=== PATIENT | female | born 1970 | race Caucasian/White ===

== ENCOUNTER 2022-03-24 09:05 | Outpatient (CLI) | payer OTHER, SELFPAY ==
--- NOTE | 2022-03-24 09:15 | CRLHL7_ITS ---
For Patients: As a result of the Century Cures Act, medical imaging exams and procedure reports are released immediately into your electronic medical record. You may view this report before your referring provider. If you have questions, please contact your health care provider. BILATERAL SCREENING MAMMOGRAM WITH COMPUTER-AIDED DETECTION AND TOMOSYNTHESIS TECHNIQUE: CC and MLO views were obtained. These mammographic images have been obtained using full-field digital technique. These mammographic images were interpreted with the benefit of computer-aided detection. Breast Tomosynthesis was used in this interpretation. COMPARISON FILM: 03/26/21, 03/08/20. FINDINGS: There are scattered areas of fibroglandular density IMPRESSION: There is no radiographic evidence for malignancy. ASSESSMENT: BI-RADS Category 1: Negative RECOMMENDATION: Routine screening mammogram in 1 year. A lay language report of this examination will be provided to the patient. Angelo Crisostomo M.D. Diagnostic Radiologist [email or web address] ADRIEL/Dictated by: Angelo Crisostomo MD @ 03/24/2022 10:07:00 AM (Electronically Signed)
== END 2022-03-24 09:06 | disposition home or self-care (01) ==
LOC: MAMMO 09:06
PROVIDERS: Visit Provider Physician Assistant Medical
DX: Z12.31 Encounter for screening mammogram for malignant neoplasm of breast (principal)
CPT/HCPCS: 77063; 77067

== ENCOUNTER 2022-07-22 10:59 | Outpatient (CLI) | payer OTHER, SELFPAY ==
[2022-07-22 21:32] LABS: Albumin* 4.5 g/dL (3.3-5.0)
[2022-07-22 21:33] LABS: Chloride* 105 mmol/L (96-114); Potassium* 4.8 mmol/L (3.6-5.1); Sodium* 138 mmol/L (135-149)
[2022-07-22 21:35] LABS: Bilirubin Total* 0.5 mg/dL (0.1-1.5); Carbon Dioxide* 27 mmol/L (20-32); Cholesterol* 222 mg/dL (90-199); Creatinine* 0.7 mg/dL (0.5-1.5); Estimated Glomerular Filt Rate 106 ml/min; Total Protein* 7.4 g/dL (6.0-8.3)
[2022-07-22 21:36] LABS: Alanine Aminotransferase* 35 U/L (4-35); Alkaline Phosphatase* 82 U/L (40-150); Aspartate Amino Transferase* 31 U/L (12-35); Blood Urea Nitrogen* 16 mg/dL (5-24); Calcium* 9.4 mg/dL (8.4-10.6); Glucose* 100 mg/dL (60-115); HDL Cholesterol* 55 mg/dL (>=50); LDL Cholesterol Calculated 131 mg/dL (<100); Triglycerides* 180 mg/dL (40-149)
== END 2022-07-22 11:00 | disposition home or self-care (01) ==
PROVIDERS: Visit Provider Physician Assistant Medical
DX: Z00.00 Encounter for general adult medical examination without abnormal findings (principal); R03.0 Elevated blood-pressure reading, without diagnosis of hypertension; E66.01 Morbid (severe) obesity due to excess calories; Z13.6 Encounter for screening for cardiovascular disorders; Z13.29 Encounter for screening for other suspected endocrine disorder
CPT/HCPCS: 80053; 80061; 84443

== ENCOUNTER 2022-07-23 07:10 | Outpatient (CLI) | payer OTHER, SELFPAY ==
--- NOTE | 2022-07-23 07:15 | CRLHL7_ITS ---
For Patients: As a result of the Century Cures Act, medical imaging exams and procedure reports are released immediately into your electronic medical record. You may view this report before your referring provider. If you have questions, please contact your health care provider. Examination: US abdominal aorta Indication: strong family hx AAA, dissection. Technique: Mayorga scale and color Doppler images of the aorta and common iliac arteries are obtained. 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 Dictated by Angelo Crisostomo MD @ 07/23/2022 9:44:35 AM (Electronically Signed)
== END 2022-07-23 07:11 | disposition home or self-care (01) ==
PROVIDERS: PCP Physician Assistant Medical; Visit Provider Physician Assistant Medical
DX: Z13.6 Encounter for screening for cardiovascular disorders (principal); I72.2 Aneurysm of renal artery; Z82.49 Family history of ischemic heart disease and other diseases of the circulatory system
CPT/HCPCS: 76706

== ENCOUNTER 2022-09-28 11:19 | Outpatient (CLI) | payer OTHER, SELFPAY ==
--- NOTE | 2022-09-28 11:56 | W.ANESCHARGE ---
Anesthesia Charges Start Date/Time Anesthesia Start Date: 09/28/22 Anesthesia Start Time: 11:50 Stop Date/Time Anesthesia Stop Date: 09/28/22 Anesthesia Stop Time: 12:46
--- NOTE | 2022-09-28 12:51 | W.ANESCHARGE ---
Anesthesia Charges Start Date/Time Anesthesia Start Date: 09/28/22 Anesthesia Start Time: 11:50 Stop Date/Time Anesthesia Stop Date: 09/28/22 Anesthesia Stop Time: 12:46
== END 2022-09-28 11:20 | disposition home or self-care (01) ==
LOC: OP CLINIC 11:20
PROVIDERS: PCP Physician Assistant Medical; Visit Provider Surgery
DX: Z12.11 Encounter for screening for malignant neoplasm of colon (principal); K63.5 Polyp of colon; K62.1 Rectal polyp; K63.89 Other specified diseases of intestine; K57.30 Diverticulosis of large intestine without perforation or abscess without bleeding; Z83.71 Family history of colonic polyps
CPT/HCPCS: 00811; 45380; 45385; 88305; J2704

== ENCOUNTER 2022-11-23 21:58 | Emergency (ER) | payer OTHER, SELFPAY ==
[2022-11-23 22:10] VITALS: BP 156/110; PULSE 97; RESP 20; TEMP 36.2; O2SAT 99; BMI 42.8
--- NOTE | 2022-11-23 23:27 | ED_ITS ---
HPI - General Adult General Chief complaint: Nausea/Vomiting Stated complaint: Wegovy medication reaction, vomiting Time Seen by Provider: 11/23/22 23:22 History of Present Illness HPI narrative: pt aox4, ABCs intact. Patient arrives stating that she has been unable to stop vomiting since 1300 today. Patient took her Wegovy ( weight loss) medication around 1130 today which was a new dose for her. Her prior dose was 0.5mg and the new dose is 2.4mg. Patient also had one bought of abdominal pain before she started vomiting. 51-year-old woman presenting to the emergency department with persistent vomiting over the last 10 hours or so. This was a few hours after dosing semaglutide injectable at a higher dose of 2.4 mg. She had been without 0.5 mg unable to find that for some time. Had been effective in her efforts at weight loss with medication at 0.5 mg. She is not having any fever. No diarrhea. No hematemesis. Just feels truly miserable. Did have some abdominal pain but really more just preceding vomiting and then would improve. Some discomfort still in the epigastrium. Related Data Home Medications Medication Instructions Recorded Confirmed golo PO 07/22/22 09/22/22 cetirizine 10 mg capsule (Allergy 10 mg PO DAILY PRN 11/23/22 11/23/22 Relief (cetirizine)) Previous Rx's Medication Instructions Recorded escitalopram oxalate 10 mg tablet 10 mg PO QDAY #90 tabs 07/22/22 (Lexapro) peg 3350-electrolytes 236 240 ml PO Q10M #4,000 mL 09/14/22 gram-22.74 gram-6.74 gram-5.86 gram solution (Golytely) semaglutide (weight loss) 2.4 2.4 mg (0.75 mL) subcut QWEEK 90 11/18/22 mg/0.75 mL subcutaneous pen days #9.75 mL injector (Wegovy) Allergies Allergy/AdvReac Type Severity Reaction Status Date / Time bupropion Allergy Unknown Rash Verified 11/23/22 22:08 Review of Systems Status of ROS: Reports: 6 or more systems reviewed and unremarkable except as noted in History and below [facility] Medical History Right knee sprain ?S83.91XA - Sprain of unspecified site of right knee, initial encounter (ICD- 10) Rash of face ?R21 - Rash and other nonspecific skin eruption (ICD-10) Surgical History History of tubal ligation ?Z98.51 - Tubal ligation status (ICD-10) History of total abdominal hysterectomy and bilateral salpingo-oophorectomy ?Z90.710 - Acquired absence of both cervix and uterus (ICD-10) ?Z90.722 - Acquired absence of ovaries, bilateral (ICD-10) ?Z90.79 - Acquired absence of other genital organ(s) (ICD-10) History of endometrial ablation ?Z98.890 - Other specified postprocedural states (ICD-10) Family History Aunt Breast cancer, Onset Age: 60 Cancer Uncle Cancer Grandmother Cancer Grandfather Diabetes Sister Hypothyroidism Social History Narrative: Smoker-10 cigarettes per day for 20 years Does not drink alcohol Does not use illicit drugs Smoking Status: Current every day smoker Do you use any of these nicotine containing products: None Non-prescribed substance use: denies use Little interest or pleasure in doing things: several days Feeling down, depressed, or hopeless: several days Exam Narrative: Exam Narrative: Pleasant. NAD. Though looks rather uncomfortable. Brow furrowed in discomfort. Breathing easily. Lungs are clear. Heart with elevated rate in a regular rhythm. Abdomen is soft normoactive bowel sounds. She is mildly tender in the epigastrium. Extremities are well perfused without edema. Skin warm and dry with good turgor. oropharynx is a little sticky. Const: Vital Signs, click to edit/add: Vital Signs - 24 hr 11/23/22 22:10 11/24/22 00:07 Temperature 97.1 F L Pulse Rate [Pulse Oximeter] 97 84 Respiratory Rate 20 16 Blood Pressure [Ri ght Upper Arm] 156/110 H 147/90 H Pulse Oximetry 99 94 Oxygen Delivery Me thod Room Air Room Air Documenting provider has reviewed patient's vital signs: yes Course Vital Signs Vital signs: Initial Vital Signs Temperature 97.1 F L 11/23/22 22:10 Temperature Source Oral 11/23/22 22:10 Pulse Rate 97 11/23/22 22:10 Respiratory Rate 20 11/23/22 22:10 Blood Pressure 156/110 H 11/23/22 22:10 Blood Pressure Mean 125 H 11/23/22 22:10 Pulse Oximetry 99 11/23/22 22:10 Oxygen Delivery Method Room Air 11/23/22 22:10 Vital Signs Temperature 97.1 F L 11/23/22 22:10 Pulse Rate 97 11/23/22 22:10 Respiratory Rate 20 11/23/22 22:10 Blood Pressure 156/110 H 11/23/22 22:10 Pulse Oximetry 99 11/23/22 22:10 Oxygen Delivery Method Room Air 11/23/22 22:10 Temperature 97.1 F L 11/23/22 22:10 Pulse Rate 84 11/24/22 00:07 Respiratory Rate 16 11/24/22 00:07 Blood Pressure 147/90 H 11/24/22 00:07 Pulse Oximetry 94 11/24/22 00:07 Oxygen Delivery Method Room Air 11/24/22 00:07 Medical Decision Making MDM Narrative Medical decision making narrative: Does appear to be a reaction to semiglutide. This is becoming a relatively common presentation emergency department. Differential still includes infectious gastritis. Presume also dehydrated. Will hydrate and give antiemetics. Check chemistries. Does not appear to be need pain medication at this time. On review labs are reassuring overall with mild hyponatremia. I think with IV fluids will have corrected that into low normal. Did receive ultimately 2 L of normal saline. Initially still with some nausea after Zofran in 1 L. Given further Reglan piggyback and the 2nd L of normal saline. Subsequently improved Anticipating discharge with Zofran prescription. See patient discharge plan. Lab Data Lab results reviewed: Yes I reviewed the patient's lab results Labs: Lab Results 11/24/22 Range/Units 00:08 Sodium 132 L (135-149) mmol/L Potassium 3.7 (3.6-5.1) mmol/L Chloride 99 (96-114) mmol/L Carbon Dioxide 24 (20-32) mmol/L BUN 10 (5-24) mg/dL Creatinine 0.7 (0.5-1.5) mg/dL Estimated Creat Clear 94.54 Estimated GFR 106 ml/min Glucose 130 H (60-115) mg/dL Calcium 9.7 (8.4-10.6) mg/dL Discharge Plan Discharge Clinical Impression: Acute dehydration, Hyponatremia, Medication adverse effect, Vomiting Patient Disposition: Home w/ Parent or Adult Condition: Improved Additional Instructions: No focus on hydration. Slow advance of diet over the next 24-36 hours. Consider starting with diluted juices, Jell-O, popsicles, toast, crackers, rice. Return for marked increase in abdominal pain, intractable vomiting, associated fever. Zofran from [facility] for nausea if needed. Prescriptions: No Action golo PO escitalopram oxalate [Lexapro] 10 mg tablet 10 mg PO QDAY Qty: 90 3RF Allergy Relief (cetirizine) 10 mg capsule 10 mg PO DAILY PRN peg 3350-electrolytes [Golytely] 236-22.74-6.74 -5.86 gram recon soln 240 ml PO Q10M Qty: 4000 0RF Rx Instructions: until fecal effluent is clear Wegovy 2.4 mg/0.75 mL pen injector 2.4 mg subcut QWEEK 90 Days Qty: 9.75 3RF Follow Up/Referrals: Erika Bravo PA-C [Primary Care Provider] - Stand Alone Forms: MyHealth Info Instructions
[2022-11-24 00:07] VITALS: BP 147/90; PULSE 84; RESP 16; O2SAT 94
[2022-11-24] MEDS: 0.9 % SODIUM CHLORIDE 1000 ml 1,000 ML IV (00:07)
[2022-11-24] MEDS: ONDANSETRON 2 MG/ML inj 4 MG IVP (00:07)
[2022-11-24 00:40] LABS: Chloride* 99 mmol/L (96-114)
[2022-11-24 00:41] LABS: Potassium* 3.7 mmol/L (3.6-5.1); Sodium* 132 mmol/L (135-149)
[2022-11-24 00:43] LABS: Creatinine* 0.7 mg/dL (0.5-1.5); Est. Creatinine Clearance* 94.54; Estimated Glomerular Filt Rate 106 ml/min
[2022-11-24 00:44] LABS: Blood Urea Nitrogen* 10 mg/dL (5-24); Calcium* 9.7 mg/dL (8.4-10.6); Carbon Dioxide* 24 mmol/L (20-32); Glucose* 130 mg/dL (60-115)
[2022-11-24] MEDS: 0.9 % SODIUM CHLORIDE 1000 ml 1,000 ML 6000 ML IV (01:29)
[2022-11-24] MEDS: METOCLOPRAMIDE HCL 10 MG in 0.9 % SODIUM CHLORIDE 100 ml 100 ML 306 MG IVPB (01:30)
== END 2022-11-24 02:29 | disposition home or self-care (01) ==
PROVIDERS: Emergency Provider Family Medicine; PCP Physician Assistant Medical
DX: E87.1 Hypo-osmolality and hyponatremia (principal); E86.0 Dehydration; R11.10 Vomiting, unspecified; T50.995A Adverse effect of other drugs, medicaments and biological substances, initial encounter
CPT/HCPCS: 36415; 80048; 96365; 96375; 99284; J2405; J2765; J7030

== ENCOUNTER 2023-03-30 15:09 | Outpatient (CLI) | payer OTHER, SELFPAY ==
--- NOTE | 2023-03-30 15:20 | CRLHL7_ITS ---
For Patients: As a result of the Century Cures Act, medical imaging exams and procedure reports are released immediately into your electronic medical record. You may view this report before your referring provider. If you have questions, please contact your health care provider. BILATERAL SCREENING MAMMOGRAM WITH COMPUTER-AIDED DETECTION AND TOMOSYNTHESIS TECHNIQUE: CC and MLO views were obtained. These mammographic images have been obtained using full-field digital technique. These mammographic images were interpreted with the benefit of computer-aided detection. Breast Tomosynthesis was used in this interpretation. COMPARISON FILM: 03/24/22, 03/26/21, 03/08/20. FINDINGS: There are scattered areas of fibroglandular density IMPRESSION: There is no radiographic evidence for malignancy. ASSESSMENT: BI-RADS Category 1: Negative RECOMMENDATION: Routine screening mammogram in 1 year. A lay language report of this examination will be provided to the patient. Angelo Crisostomo M.D. Diagnostic Radiologist [email or web address] ADRIEL/Dictated by: Angelo Crisostomo MD @ 03/31/2023 12:08:00 PM (Electronically Signed)
== END 2023-03-30 15:10 | disposition home or self-care (01) ==
LOC: MAMMO 15:10
PROVIDERS: PCP Physician Assistant Medical; Visit Provider Physician Assistant Medical
DX: Z12.31 Encounter for screening mammogram for malignant neoplasm of breast (principal)
CPT/HCPCS: 77063; 77067

== ENCOUNTER 2023-04-22 09:33 | Outpatient (CLI) | payer OTHER, SELFPAY ==
--- NOTE | 2023-04-22 10:57 | W.ANESCHARGE ---
Anesthesia Charges Start Date/Time Anesthesia Start Date: 04/22/23 Anesthesia Start Time: 10:17 Stop Date/Time Anesthesia Stop Date: 04/22/23 Anesthesia Stop Time: 10:54
== END 2023-04-22 09:34 | disposition home or self-care (01) ==
LOC: OP CLINIC 09:34
PROVIDERS: PCP Physician Assistant Medical; Visit Provider Surgery
DX: Z86.010 Personal history of colon polyps (principal); K63.5 Polyp of colon; K63.89 Other specified diseases of intestine; Z09 Encounter for follow-up examination after completed treatment for conditions other than malignant neoplasm
CPT/HCPCS: 00811; 45380; 45385; 88305; J2704

== ENCOUNTER 2023-08-24 08:03 | Outpatient (CLI) | payer OTHER, SELFPAY | END 2023-08-24 08:04 | disposition home or self-care (01) | LOC: NFLDREF 08-25 11:09 | PROVIDERS: PCP Physician Assistant Medical; Referring Provider Physician Assistant Medical; Visit Provider Physician Assistant Medical | DX: Z00.00 Encounter for general adult medical examination without abnormal findings (principal); F41.9 Anxiety disorder, unspecified; R73.03 Prediabetes; R03.0 Elevated blood-pressure reading, without diagnosis of hypertension | CPT/HCPCS: 80053; 80061; 84443 ==

== ENCOUNTER 2024-05-23 15:40 | Outpatient (CLI) | payer OTHER, SELFPAY ==
--- NOTE | 2024-05-23 16:00 | CRLHL7_ITS ---
For Patients: As a result of the Cures Act, medical imaging exams and procedure reports are released immediately into your electronic medical record. You may view this report before your referring provider. If you have questions, please contact your health care provider. BILATERAL SCREENING MAMMOGRAM WITH COMPUTER-AIDED DETECTION AND TOMOSYNTHESIS TECHNIQUE: CC and MLO views were obtained. These mammographic images have been obtained using full-field digital technique. These mammographic images were interpreted with the benefit of computer-aided detection. Breast Tomosynthesis was used in this interpretation. COMPARISON FILM: 03/30/23, 03/24/22, 03/26/21. FINDINGS: There are scattered areas of fibroglandular density IMPRESSION: There is no radiographic evidence for malignancy. ASSESSMENT: BI-RADS Category 1: Negative RECOMMENDATION: Routine screening mammogram in 1 year. A lay language report of this examination will be provided to the patient. Angelo Crisostomo M.D. Diagnostic Radiologist [email or web address] SHILA/rick Transcribed: 4:49 p.mOk cabrera/Dictated by: Angelo Crisostomo MD @ 05/24/2024 10:04:00 AM (Electronically Signed)
== END 2024-05-23 15:41 | disposition home or self-care (01) ==
LOC: MAMMO 15:41
PROVIDERS: PCP Physician Assistant Medical; Visit Provider Physician Assistant Medical
DX: Z12.31 Encounter for screening mammogram for malignant neoplasm of breast (principal)
CPT/HCPCS: 77063; 77067

== ENCOUNTER 2024-12-19 08:24 | Outpatient (CLI) | payer OTHER, SELFPAY | END 2024-12-19 08:25 | disposition home or self-care (01) | LOC: NFLDREF 12-21 13:01 | PROVIDERS: PCP Physician Assistant Medical; Referring Provider Physician Assistant Medical; Visit Provider Physician Assistant Medical | DX: Z00.00 Encounter for general adult medical examination without abnormal findings (principal); F41.9 Anxiety disorder, unspecified; R73.03 Prediabetes; E66.01 Morbid (severe) obesity due to excess calories | CPT/HCPCS: 80053; 80061; 84443 ==

== ENCOUNTER 2025-01-11 09:50 | Outpatient (CLI) | payer OTHER, SELFPAY ==
--- NOTE | 2025-01-11 11:00 | P.ANES_ITS ---
Anesthesia Charges Start Date/Time Anesthesia Start Date: 01/11/25 Anesthesia Start Time: 10:29 Stop Date/Time Anesthesia Stop Date: 01/11/25 Anesthesia Stop Time: 10:57 Coding CPT Codes CPT Codes: DANNY LWR INTST NDSC NOS - 97926 ([id number]) P2 - PATIENT W/MILD SYST DISEASE, QK - DISHWASHER PREPARER 2-4 CNCRNT ANES PROC, QX - WAREHOUSE ASSISTANT SVC W/ MD MED DIRECTION
--- NOTE | 2025-01-11 11:00 | W.ANESCHARGE ---
Anesthesia Charges Start Date/Time Anesthesia Start Date: 01/11/25 Anesthesia Start Time: 10:29 Stop Date/Time Anesthesia Stop Date: 01/11/25 Anesthesia Stop Time: 10:57 Coding CPT Codes CPT Codes: DANNY LWR INTST NDSC NOS - 85489 ([id number]) P2 - PATIENT W/MILD SYST DISEASE, QK - ROTARY RIG ENGINE OPERATOR 2-4 CNCRNT ANES PROC, QX - BIT SHARPENER SVC W/ MD MED DIRECTION
--- NOTE | 2025-01-11 11:05 | P.ANES_ITS ---
Anesthesia Charges Start Date/Time Anesthesia Start Date: 01/11/25 Anesthesia Start Time: 10:29 Stop Date/Time Anesthesia Stop Date: 01/11/25 Anesthesia Stop Time: 10:57 Coding CPT Codes CPT Codes: DANNY LWR INTST NDSC NOS - 00805 ([id number]) QX - LOCK MAINTENANCE SUPERVISOR SVC W/ MD MED DIRECTION, QK - CHILI PEPPER GRINDER 2-4 CNCRNT ANES PROC, P2 - PATIENT W/MILD SYST DISEASE
--- NOTE | 2025-01-11 11:05 | W.ANESCHARGE ---
Anesthesia Charges Start Date/Time Anesthesia Start Date: 01/11/25 Anesthesia Start Time: 10:29 Stop Date/Time Anesthesia Stop Date: 01/11/25 Anesthesia Stop Time: 10:57 Coding CPT Codes CPT Codes: DANNY LWR INTST NDSC NOS - 86082 ([id number]) QX - MOBILITY ARCHITECT MANAGER SVC W/ MD MED DIRECTION, QK - CANOPY INSPECTOR 2-4 CNCRNT ANES PROC, P2 - PATIENT W/MILD SYST DISEASE
== END 2025-01-11 09:51 | disposition home or self-care (01) ==
LOC: OP CLINIC 09:52
PROVIDERS: PCP Physician Assistant Medical; Visit Provider Internal Medicine
DX: Z12.11 Encounter for screening for malignant neoplasm of colon (principal); D12.0 Benign neoplasm of cecum; D12.5 Benign neoplasm of sigmoid colon; K57.30 Diverticulosis of large intestine without perforation or abscess without bleeding; Z86.0100 Personal history of colon polyps, unspecified
CPT/HCPCS: 00811; 00812; 45380; 45385; 88305; J2704

== ENCOUNTER 2025-04-06 09:06 | Outpatient (CLI) | payer OTHER, SELFPAY ==
--- NOTE | 2025-04-06 09:15 | MR_ITS ---
[address] [address] Phone:?[phone] Fax:?[phone] Referring Physician Information: Deandre Champion M.D. [address] [facility] [place] [address] Phone:?[phone] Fax:?[phone] Patient:Michael Valenzuela D.O.B:?1970 Sex:?Female Phone:?[phone] [facility] MRN:?[id number] Exam Date:?04/06/2025 EXAM: MRI of the LEFT KNEE without contrast CLINICAL: Bilateral knee pain. COMPARISONS: X-rays including 11/30/2017. TECHNICAL: Multiplanar multisequence MRI of the left knee was obtained. SEDATION: None. CONTRAST: None. FINDINGS: Ligaments: ACL: Intact and unremarkable. PCL: Intact and unremarkable. MCL: Intact and unremarkable. LCL: Intact and unremarkable. Posterolateral corner: The popliteus tendon, distal biceps femoris tendon, distal iliotibial band, and the popliteofibular ligament appear intact. Posteromedial corner: Semimembranosus, pes anserine tendons and posterior oblique ligament appear intact. Extensor mechanism: Patellar tendon: Intact, without tendinopathy. Quadriceps tendon: Intact, without tendinopathy. Retinacula: Medial and lateral retinacula are intact. Fat pads: Unremarkable infrapatellar Hoffa's, quadriceps and prefemoral fat pads. Patellofemoral joint: Patella: Grade 2 and 3 chondral loss is seen to involve the patella. Trochlea: There is high-grade/full-thickness chondral loss involving the lateral trochlea with adjacent subchondral reactive marrow edema. There is chondral heterogeneity and grade 2 chondral loss involving the remainder of the trochlea. Medial compartment: Medial meniscus: There is complex tearing throughout the posterior horn and throughout the body segment. Approximately 7 mm of inferior and 5 mm medial extrusion of the body segment into the medial gutter. Medial cartilage: There is full-thickness chondral loss involving the medial femoral condyle and medial tibial plateau with adjacent subchondral marrow edema. Lateral compartment: Lateral meniscus: There is ill-defined complex tearing involving the posterior root extending into the junction with the posterior horn on sagittal series 6 image 17-20. No meniscal displacement. Lateral cartilage: There is high-grade and full-thickness chondral loss involving the lateral femoral condyle and lateral tibial plateau. Knee joint: Effusion: Physiologic left knee effusion. Intra-articular bodies:?There are intra-articular bodies within the posterior knee joint recesses. Small intra-articular body along the peripheral medial femoral condyle on axial series 4 image 16. Popliteal cyst: None. Bones: Scattered degenerative peripheral marginal spurring is seen to involve all 3 compartments of the knee. There is no evidence of acute osseous fracture. IMPRESSION: 1. Tearing of the medial meniscus as above with extrusion of the body segment medial meniscus into the medial gutter. 2. Tearing of the posterior root lateral meniscus. 3. 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 4. Intra-articular bodies noted within the posterior knee joint recesses with a small body also noted along the peripheral medial femoral condyle. JCZ Electronically signed on 04/06/2025 11:22:00 AM by Matthew Lopez D.O.
--- NOTE | 2025-04-06 10:15 | MR_ITS ---
[address] [address] Phone:?[phone] Fax:?[phone] Referring Physician Information: Deandre Champion M.D. [address] [facility] [address] Phone:?[phone] Fax:?[phone] Patient:Michael Valenzuela D.O.B:?1970 Sex:?Female Phone:?[phone] [facility] MRN:?[id number] Exam Date:?04/06/2025 EXAM: MRI of the RIGHT KNEE without contrast CLINICAL: Bilateral knee pain. COMPARISONS: X-rays including 11/30/2017. TECHNICAL: Multiplanar multisequence MRI of the right knee was obtained. SEDATION: None. CONTRAST: None. FINDINGS: Ligaments: ACL: Intact and unremarkable. PCL: Intact and unremarkable. MCL: Intact and unremarkable. LCL: Intact and unremarkable. Posterolateral corner: The popliteus tendon, distal biceps femoris tendon, distal iliotibial band, and the popliteofibular ligament appear intact. Posteromedial corner: Semimembranosus, pes anserine tendons and posterior oblique ligament appear intact. Extensor mechanism: Patellar tendon: Intact, without tendinopathy. Quadriceps tendon: Intact, without tendinopathy. Retinacula: Medial and lateral retinacula are intact. Fat pads: Unremarkable infrapatellar Hoffa's, quadriceps and prefemoral fat pads. Patellofemoral joint: Patella: There is high-grade/full-thickness chondral loss involving the medial patellar facet extending into the patellar median ridge. Trochlea: Grade 2 and 3 chondral loss is seen to involve the trochlea. Medial compartment: Medial meniscus: There is complex tearing throughout the posterior horn extending into the posterior root with complex tearing also seen throughout the body segment extending into the anterior horn. Approximately 6 mm of medial extrusion of the peripheral body segment into the medial gutter. Medial cartilage: There is full-thickness chondral loss involving the medial femoral condyle and medial tibial plateau with adjacent subchondral reactive marrow edema. Lateral compartment: Lateral meniscus: There is mild tearing near/involving the free edge of the body segment extending into the junction with the anterior horn on coronal series 8 image 17-18 and sagittal series 6 image 9. Remainder of the lateral meniscus appears intact. No meniscal displacement. Lateral cartilage: There is grade 3 chondral loss involving the medial aspect of the tibial plateau. Focal deep chondral fissure involving the lateral plateau adjacent subchondral marrow edema on coronal series 8 image 19. There is high-grade/full-thickness chondral loss involving the weightbearing lateral femoral condyle. Knee joint: Effusion: Small right knee effusion. Intra-articular bodies:?No convincing bodies identified. Popliteal cyst: None. Bones: There is scattered degenerative peripheral marginal spurring seen to involve all 3 compartments of the knee. No evidence of acute fracture. IMPRESSION: 1. Tearing of the medial meniscus as above with extrusion of the body segment into the medial gutter. 2. Mild tearing of the lateral meniscus as above. 3. Tricompartmental osteoarthritis/chondral loss as above. 4. No evidence of ligamentous injury or fracture. JCZ Electronically signed on 04/06/2025 11:29:00 AM by Matthew Lopez D.O.
== END 2025-04-06 09:07 | disposition home or self-care (01) ==
PROVIDERS: PCP Physician Assistant Medical; Visit Provider Orthopaedic Surgery Sports Medicine
DX: M25.562 Pain in left knee (principal); S83.241A Other tear of medial meniscus, current injury, right knee, initial encounter; S83.281A Other tear of lateral meniscus, current injury, right knee, initial encounter; M17.0 Bilateral primary osteoarthritis of knee; M25.561 Pain in right knee; S83.242A Other tear of medial meniscus, current injury, left knee, initial encounter; S83.282A Other tear of lateral meniscus, current injury, left knee, initial encounter
CPT/HCPCS: 73721

== ENCOUNTER 2025-05-29 16:50 | Outpatient (CLI) | payer OTHER, SELFPAY ==
--- NOTE | 2025-05-29 17:00 | CRLHL7_ITS ---
For Patients: As a result of the Century Cures Act, medical imaging exams and procedure reports are released immediately into your electronic medical record. You may view this report before your referring provider. If you have questions, please contact your health care provider. INDICATION: BILATERAL SCREENING MAMMOGRAM, ASYMPTOMATIC 54 Y/O FEMALE COMPARISON: 05/23/2024, 03/30/2023, 03/24/2022 TECHNIQUE: Digital mammogram in CC and MLO projections including computer-aided detection (CAD) and tomosynthesis. BREAST COMPOSITION: There are scattered areas of fibroglandular density. FINDINGS: No suspicious findings. ASSESSMENT: BI-RADS 1 Negative RECOMMENDATION: Annual screening mammogram. A lay language report of this examination will be provided to the patient. Dictated by: Vale Hernandez MD @ 05/31/2025 07:43:49 (Electronically Signed)
== END 2025-05-29 16:51 | disposition home or self-care (01) ==
LOC: MAMMO 16:50
PROVIDERS: PCP Physician Assistant Medical; Visit Provider Physician Assistant Medical
DX: Z12.31 Encounter for screening mammogram for malignant neoplasm of breast (principal)
CPT/HCPCS: 77063; 77067